=== PATIENT | female | born 1965 | race Caucasian/White ===

== ENCOUNTER 2024-03-05 13:30 | Outpatient (RCR) | payer MEDICARE, OTHER ==
[~2024-03-05 13:30] MED LIST: ASPERCREME ARTH50 GM TP; ATIVAN 1MG T1 MG/TAB PO; B-121000 MCG PO; BONIVA150 MG PO; BUSPAR DIVIDOSE15 MG PO; DESYREL DIVIDO150 M1 PO; FLEXERIL 1010 MG/TAB PO; K-TAB10 PO; LASIX 20MG TABL20 MG PO; LIDODERM 5% PATC1 EA TP; LINZESS290CAP PO; LUVOX100 MG PO; MAGNESIUM250 M1 PO; MIRALAX PA17 GM/Dose PO; MOBIC15 MG PO; NEURONTIN600 MG/TAB PO; PRISTIQ 50 MG T50 MG PO; RELPAX 40MG TAB40 MG PO; REVIA 50MG TABL50 MG PO; STOOL SOFTENER100 M2 PO; TYLENOL 8 HR PO; VITAMIN D 50,1.25 MG PO; VITAMIN D250 MCG PO
== END 2024-03-07 ==
LOC: WSPT
DX: M53.3 Sacrococcygeal disorders, not elsewhere classified (principal); M54.41 Lumbago with sciatica, right side; M79.18 Myalgia, other site; G89.29 Other chronic pain

== ENCOUNTER 2024-04-06 09:38 | Outpatient (RCR) | payer MEDICARE, OTHER ==
[~2024-04-06] VITALS: Ht 170.2 cm; Wt 53.8 kg
[2024-04-06 09:55] VITALS: BP 113/72; PULSE 78; TEMP 98.2
[2024-04-06] MEDS ORDERED: Iron Sucrose 200 MG in NS 100 ML Over 15 minutes IV ONE (10:00)
== END 2024-04-06 10:42 | disposition home or self-care (01) ==
LOC: EUO 09:38
DX: D50.9 Iron deficiency anemia, unspecified (principal)
CPT/HCPCS: J1756